=== PATIENT | female | born 1965 | race Caucasian/White ===

== ENCOUNTER 2017-01-08 16:35 | Emergency (ER) | payer MEDICAID, OTHER ==
[~2017-01-08] VITALS: Ht 160 cm; Wt 80.0 kg
[2017-01-08 16:38] VITALS: Ht 160 cm; Wt 80.0 kg
[2017-01-08] MEDS ORDERED: SOD CHLORIDE 0.9% 2,480 ML IV ONE (17:00)
[2017-01-08 17:35] LABS: ADD SCAN DIFF NO; BASOPHILS % 0.1 % (0.0-2.0); EOSINOPHILS % 0.3 % (0.0-7.0); HEMATOCRIT 36.8 % (37.0-47.0); HEMOGLOBIN 11.4 g/dl (12.0-16.0); LYMPHOCYTES # 1.2 10^3/ul (0.8-2.9); LYMPHOCYTES % 7.6 % (15.0-51.0); MEAN CORPUSCULAR HEMOGLOBIN 24.7 pg (29.0-33.0); MEAN CORPUSCULAR VOLUME 79.8 fl (82.0-101.0); MEAN PLATELET VOLUME 9.6 fl (7.4-10.4); MONOCYTE # 1.1 10^3/ul (0.3-0.9); MONOCYTES % 7.1 % (0.0-11.0); NEUTROPHIL # 13.3 10^3/ul (1.6-7.5); NEUTROPHILS % 84.5 % (39.0-77.0); PLATELET COUNT 308 10^3/UL (140-415); RED BLOOD COUNT 4.61 10^6/ul (4.20-5.40); RED CELL DISTRIBUTION WIDTH 15.9 % (11.5-14.5); WHITE BLOOD COUNT 15.8 10^3/ul (4.8-10.8)
[2017-01-08 17:41] LABS: ADD UMIC YES; URINE BILIRUBIN (Dip) NEGATIVE (NEGATIVE); URINE BLOOD (Dip) 2+ (NEGATIVE); URINE COLOR LT. YELLOW (YELLOW); URINE GLUCOSE (Dip) NEGATIVE (NEGATIVE); URINE KETONES (Dip) 15 (NEGATIVE); URINE LEUKOCYTE ESTERASE (Dip) 1+ (NEGATIVE); URINE NITRITE (Dip) NEGATIVE (NEGATIVE); URINE TOTAL PROTEIN (Dip) NEGATIVE (NEGATIVE); URINE UROBILINOGEN (Dip) 0.2 E.U./dL (0.1-1.0)
[2017-01-08 17:47] LABS: ALBUMIN 4.3 g/dl (3.3-4.9)
[2017-01-08 17:48] LABS: POTASSIUM 3.6 mmol/L (3.5-5.1)
[2017-01-08 17:50] LABS: ALBUMIN/GLOBULIN RATIO 1.07; BILIRUBIN,INDIRECT 0.6 mg/dl (0-1.1); BILIRUBIN,TOTAL 0.6 mg/dl (0.2-1.3); CREATININE 0.72 mg/dl (0.44-1.00); TOTAL PROTEIN 8.3 g/dl (6.1-8.1)
[2017-01-08 17:51] LABS: CALCIUM 9.2 mg/dl (8.4-10.2)
[2017-01-08 18:04] LABS: BACTERIA,URINE FEW; SQUAMOUS EPITHELIAL CELL,UR MODERATE
[2017-01-08] MEDS ORDERED: ACETAMINOPHEN 500 MG TAB PO STA (19:46)
[2017-01-08] MEDS ORDERED: IBUPROFEN 600 MG TAB PO ONE (20:00)
--- NOTE | 2017-01-08 20:49 | RADRPT ---
PROCEDURE: CT abdomen and pelvis with. contrast. CLINICAL INDICATION: Abdominal pain. TECHNIQUE: Noncontrast CT examination of the abdomen and pelvis, with axial, sagittal and coronal r eformatted images. CTDI: 18.08 mGy and DLP: 1046.32 mGy-cm. COMPARISON: None. FINDINGS: CT abdomen: Mild dependent bilateral lower lobe atelectasis. The lungs are otherwise clear. The heart size is normal, without pericardial thickening or effusion. Fatty infiltration of the liver. The spleen is normal in size and homogeneous in density. The stoma ch is partially collapsed, but is grossly unremarkable. The pancreas as visualized is normal. The gallbladder and biliary tree are unremarkable and there is no evidence for biliary dilatation. The adrenal glands are symmetric and normal. The kidneys are symmetrically unremarkable as well. No desiree al calculus or obstructive uropathy or mass lesion is seen. The aorta is of normal caliber. There is no retroperitoneal lymphadenopathy. The josias hepatis re gion is clear. The bowel and mesentery, as visualized, are equally unremarkable. CT pelvis: The small bowel loops situated within the pelvis are unremarkable. Fluid in the endometrial canal. Nabothian cysts in the cervix. These measure up to about 12 mm and consider ultrasound correlation. The pelvic organs are otherwise normal. The pelvic sidewalls and inguinal regions are clear. The s igmoid colon scattered diverticulosis; and rectum is unremarkable. No mass, lymphadenopathy, or jagdeep e fluid is seen. No acute inflammation is seen. The appendix is unremarkable. The surrounding osseous structures are remarkable for mild degenerative spondylosis of the spine. N o osteolytic or osteoblastic lesion is detected. IMPRESSION: 1. Fatty infiltration of the liver. 2. Otherwise, no acute process in the abdomen and pelvis. RPTAT: [facility]U Physician Allan Date Time Electronically viewed and signed by Physician Allan on 01/08/2017 20:48 RS/
[2017-01-08] MEDS ORDERED: CEFTRIAXONE 1 GM/50 ML (PMX) 50 ML IVPB ONE (21:30)
--- NOTE | 2017-01-08 21:37 | RADRPT ---
PROCEDURE: XR Chest. CLINICAL INDICATION: Cough. TECHNIQUE: Single frontal view of the chest was obtained COMPARISON: None FINDINGS: The heart and mediastinum are within normal limits. Hypoinflated lungs accentuate pulmonary vascula r markings. The lungs are clear. There is no pleural effusion or pneumothorax. IMPRESSION: No acute disease. RPTAT: [facility]U Physician Allan Date Time Electronically viewed and signed by Physician Allan on 01/08/2017 21:37 RS/
[2017-01-08 21:51] VITALS: BP 108/58; PULSE 75; RESP 18; TEMP 98.1
[2017-01-08] MEDS ORDERED: CIPR500T4 PO (21:52)
[2017-01-08] MEDS ORDERED: IBUP-1542 PO (21:52)
--- NOTE | 2017-01-08 23:51 | ERD ---
ER Documentation Chief Complaint Date/Time DATE: 01/08/17 TIME: 23:45 Chief Complaint ap today, fever since last night HPI 51 year old female with no significant past medical history presents the ED complaining of abdominal pain, umbilical discharge started 10 days ago. Patient reports that she had a fever last night. States that she had some chills, dysuria, flank pain. Denies any chest pain, wheezing, shortness of breath, hematuria, urgency, frequency, vomiting, diarrhea. Denies any sick contacts. Reports that she has normal daily bowel movements. ROS All systems reviewed and are negative except as per history of present illness. Medications Home Meds Active Scripts Ibuprofen* (Motrin*) 600 Mg Tab, 600 MG PO Q6, #30 TAB take with food Prov:CHAR MADERA PA-C 01/08/17 Ciprofloxacin Hcl* (Ciprofloxacin Hcl*) 500 Mg Tablet, 500 MG PO BID for 7 Days , TAB Prov:CHAR MADERA PA-C 01/08/17 Allergies Allergies: Coded Allergies: No Known Allergy (Unverified , 01/08/17) PMhx/Soc Hx Alcohol Use: No Hx Substance Use: No Hx Tobacco Use: No Smoking Status: Unknown if ever smoked Physical Exam Vitals Vital Signs Date Time Temp Pulse Resp B/P Pulse Ox O2 Delivery O2 Flow Rate FiO2 01/08/17 21:51 98.1 75 18 108/58 97 Room Air 01/08/17 16:38 102.1 109 18 134/85 99 Physical Exam Const: [id number], well-nourished. In no acute distress. Head: Atraumatic, normocephalic Eyes: Normal Conjunctiva without injection. No purulent discharge. ENT: Normal external ear, nose. Moist oropharynx without tonsillar exudates. Non -erythematous pharynx. Uvula midline. No drooling. No trismus. Neck: No cervical midline tenderness. Full range of motion. No meningismus. No cervical lymphadenopathy. No JVD. Resp: Clear to auscultation bilaterally. No wheezing, rhonchi, rales, or crackles. No accessory muscle use. No retractions. Cardio: Regular rate and rhythm. No murmurs, rubs or gallops. Abd: Soft, tender to palpation of the right and left lower quadrants, non distended. Normal bowel sounds. No palpable masses. No rebound tenderness. No guarding. Negative McBurney's point. Negative psoas sign. Negative obturator sign. Skin: No petechiae or rashes Back: No midline tenderness. Right CVA tenderness. Ext: No cyanosis, or edema. Neur: Awake and alert. Normal gait. Normal coordination. Psych: Normal Mood and Affect Result Diagram: 01/08/17 1715 01/08/17 1715 Results 24 hrs Laboratory Tests Test 01/08/17 17:15 White Blood Count 15.810^3/ul Red Blood Count 4.6110^6/ul Hemoglobin 11.4g/dl Hematocrit 36.8% Mean Corpuscular Volume 79.8fl Mean Corpuscular Hemoglobin 24.7pg Mean Corpuscular Hemoglobin Concent 31.0g/dl Red Cell Distribution Width 15.9% Platelet Count 60395^3/UL Mean Platelet Volume 9.6fl Neutrophils % 84.5% Lymphocytes % 7.6% Monocytes % 7.1% Eosinophils % 0.3% Basophils % 0.1% Nucleated Red Blood Cells % 0.0/100WBC Neutrophils # 13.310^3/ul Lymphocytes # 1.210^3/ul Monocytes # 1.110^3/ul Eosinophils # 0.010^3/ul Basophils # 0.010^3/ul Nucleated Red Blood Cells # 0.010^3/ul Urine Color LT. YELLOW Urine Clarity SLIGHTLY CLOUDY Urine pH 6.5 Urine Specific [place] 1.010 Urine Ketones 15 Urine Nitrite NEGATIVE Urine Bilirubin NEGATIVE Urine Urobilinogen 0.2 E.U./dL Urine Leukocyte Esterase 1+ Urine Microscopic RBC 10-25/HPF Urine Microscopic WBC 10-25/HPF Urine Squamous Epithelial Cells MODERATE Urine Bacteria FEW Urine Hemoglobin 2+ Urine Glucose NEGATIVE% Urine Total Protein NEGATIVE Sodium Level 134mmol/L Potassium Level 3.6mmol/L Chloride Level 96mmol/L Carbon Dioxide Level 29mmol/L Anion Gap 13 Blood Urea Nitrogen 7mg/dl Creatinine 0.72mg/dl Glucose Level 119mg/dl Calcium Level 9.2mg/dl Total Bilirubin 0.6mg/dl Direct Bilirubin 0.00mg/dl Indirect Bilirubin 0.6mg/dl Aspartate Amino Transf (AST/SGOT) 54IU/L Alanine Aminotransferase (ALT/SGPT) 58IU/L Alkaline Phosphatase 97IU/L Total Protein 8.3g/dl Albumin 4.3g/dl Globulin 4.00g/dl Albumin/Globulin Ratio 1.07 Lipase 39U/L Current Medications Medications (Trade) Dose Ordered Sig/Ezra Route PRN Reason Start Time Stop Time Status Last Admin Dose Admin Sodium Chloride (NS) 2,480 ml @ 2,480 mls/hr BOLUS X1 ONCE IV 01/08/17 17:00 01/08/17 17:59 DC 01/08/17 17:23 Ibuprofen (Motrin) 600 mg ONCE ONCE PO 01/08/17 20:00 01/08/17 20:01 DC 01/08/17 20:01 Acetaminophen 500 mg 500 mg ONCE STAT PO 01/08/17 19:46 01/08/17 19:47 DC 01/08/17 20:01 Ceftriaxone Sodium (Rocephin) 50 ml @ 100 mls/hr ONCE ONCE IVPB 01/08/17 21:30 01/08/17 21:59 DC 01/08/17 21:47 Procedures/MDM This is a 51-year-old female with no significant past medical history presents to the ED complaining of fever, abdominal pain, flank pain, umbilical discharge , dysuria. Patient currently has a fever of 100.2. Patient is tachycardic at 109. Patient was further worked up with CBC, CMP, lipase, UA, urine , CT of the abdomen and pelvis without contrast. Patient's pain and symptoms have improved after treatment with 1 L of normal saline, Tylenol, ibuprofen. CBC: Leukocytosis of 15.8. Hbg 11.4 CMP: No e/o severe acidosis, alkalosis, renal failure, diabetic ketoacidosis, liver disease Lipase within normal limits. Urine: 2+ leukocyte esterase with 10-25 white blood cells, no nitrites, no hematuria. Urine : Negative PROCEDURE: XR Chest. CLINICAL INDICATION: Cough. TECHNIQUE: Single frontal view of the chest was obtained COMPARISON: None FINDINGS: The heart and mediastinum are within normal limits. Hypoinflated lungs accentuate pulmonary vascular markings. The lungs are clear. There is no pleural effusion or pneumothorax. IMPRESSION: No acute disease. PROCEDURE: CT abdomen and pelvis with. contrast. CLINICAL INDICATION: Abdominal pain. TECHNIQUE: Noncontrast CT examination of the abdomen and pelvis, with axial, sagittal and coronal reformatted images. CTDI: 18.08 mGy and DLP: 1046.32 mGy-cm. COMPARISON: None. FINDINGS: CT abdomen: Mild dependent bilateral lower lobe atelectasis. The lungs are otherwise clear. The heart size is normal, without pericardial thickening or effusion. Fatty infiltration of the liver. The spleen is normal in size and homogeneous in density. The stomach is partially collapsed, but is grossly unremarkable. The pancreas as visualized is normal. The gallbladder and biliary tree are unremarkable and there is no evidence for biliary dilatation. The adrenal glands are symmetric and normal. The kidneys are symmetrically unremarkable as well. No renal calculus or obstructive uropathy or mass lesion is seen. The aorta is of normal caliber. There is no retroperitoneal lymphadenopathy. The josias hepatis region is clear. The bowel and mesentery, as visualized, are equally unremarkable. CT pelvis: The small bowel loops situated within the pelvis are unremarkable. Fluid in the endometrial canal. Nabothian cysts in the cervix. These measure up to about 12 mm and consider ultrasound correlation. The pelvic organs are otherwise normal. The pelvic sidewalls and inguinal regions are clear. The sigmoid colon scattered diverticulosis; and rectum is unremarkable. No mass, lymphadenopathy, or free fluid is seen. No acute inflammation is seen. The appendix is unremarkable. The surrounding osseous structures are remarkable for mild degenerative spondylosis of the spine. No osteolytic or osteoblastic lesion is detected. IMPRESSION: 1. Fatty infiltration of the liver. 2. Otherwise, no acute process in the abdomen and pelvis. Patient symptoms could likely be due to pyelonephritis. There are no CT/CXR evidence of abscess, diverticulitis, perforation, appendicitis, pneumonia, pneumothorax, cystitis, bowel obstruction, or other emergent conditions. She was treated here in the ED with ceftriaxone. Low suspicion for sepsis. A differential diagnosis considered includes but is not limited to gastritis, GERD , peptic ulcer disease, cholecystitis, choledocholithiasis, cholangitis, pancreatitis, appendicitis, bowel obstruction, ileus, volvulus, nephrolithiasis , hepatitis, perforated viscus, diverticulitis, abdominal hernia, acute abdomen , mesenteric ischemia or other emergent conditions. This case was discussed with my supervising physician, Dr. Abreu who stated that patient can be managed on outpatient basis Discharge medications: Ibuprofen, Ciprofloxacin Follow up with primary care physician in 1-2 days for referral to phosphorus processing supervisor. Instructed patient to return to the ED sooner for any worsening symptoms. Patient's questions were answered. Patient understood and agreed with discharge plan. Patient discharged stable. Departure Diagnosis: Primary Impression: Flank pain Additional Impressions: Fever Fever type: unspecified Qualified Code: R50.9 - Fever, unspecified fever cause Dysuria Abdominal pain Abdominal location: lower abdomen, unspecified Qualified Code: R10.30 - Lower abdominal pain Condition: Stable Patient Instructions: Fever Control (Adult), Pyelonephritis, Female (Adult) [facility]errals[facility] Usted se hui hecho un examen mdico de control que le indica que no est en chris condicin que requiera tratamiento urgente en el Departamento de Emergencia. Un estudio ms profundo y el tratamiento de carmona condicin pueden esperar sin ningn riesgo hasta que usted sea atendida/o en el consultorio de carmona mdico o chris cl julito. Es responsabilidad suya arreglar chris fred para el seguimiento del anupama. MANEJO DE CONDICIONES NO URGENTES EN EL FUTURO 1) Si usted tiene un mdico de atencin primaria: Usted debera llamar a carmona mdico de atencin primaria antes de venir al departamento de emergencia. Despus de las horas de consultorio, carmona doctor o carmona asociado/a est disponible por telfono. El mdico o enfermero de jillian en el servicio telefnico puede asesorarle por michaelle medio para atender el problema, o anupama contrario se puede programar chris fred. 2) Si usted no tiene un mdico de atencin primaria: Llame al mdico o clnica de referencia que aparece abajo sue las horas de consultorio para hacer chris fred para que le vean. CLINICAS: [facility] [phone] [address] [facility] [phone] [address] [facility] 133 [phone] [address] [facility] [phone] [address] [facility] [place] [id number] [phone] [facility]. [phone] [address] [facility]. [facility] () Usflorentino se hui hecho un examen mdico de control que le indica que no est en chris condicin que requiera tratamiento urgente en el Departamento de Emergencia. Un estudio ms profundo y el tratamiento de carmona condicin pueden esperar sin ningn riesgo hasta que usted sea atendida/o en el consultorio de carmona mdico o chris cl julito. Es responsabilidad suya arreglar chris fred para el seguimiento del anupama. MANEJO DE CONDICIONES NO URGENTES EN EL FUTURO 1) Si usted tiene un mdico de atencin primaria: Usted debera llamar a carmona mdico de atencin primaria antes de venir al departamento de emergencia. Despus de las horas de consultorio, carmona doctor o carmona asociado/a est disponible por telfono. El mdico o enfermero de jillian en el servicio telefnico puede asesorarle por michaelle medio para atender el problema, o anupama contrario se puede programar chris fred. 2) Si usted no tiene un mdico de atencin primaria: Llame al mdico o condado institucions de referencia que aparece abajo sue las horas de consultorio para hacer chris fred para que le vean. SI USTED NO PUEDE PAGAR PARA DEVANTE UN MEDICO puede ir a: [facility] [address] [place] [address] [facility] [address] [place] [address] [facility] [address] [place] [address] [facility] [address] [place] [address] [facility] URGENT CARE/SPECIALTIES Additional Instructions: Llame al doctor hardy chris FRED PARA DENTRO DE 1-2 RAMOS.Dgale a la secretaria que nosotros le instruimos hacer esta fred.Avise o llame si carmona condicin se empeora antes de la fred. Regresa aqui si peor o no mejor. CHAR MADERA PA-C Jan 08, 2017 23:51
== END 2017-01-08 22:06 | disposition home or self-care (01) ==
LOC: FTE 16:35
DX: R10.30 Lower abdominal pain, unspecified (principal); R30.0 Dysuria; R50.9 Fever, unspecified
CPT/HCPCS: 36415; 71010; 74176; 80053; 81001; 83690; 85025; 96374; J0696; J7030; Z7502; Z7610; 81003